=== PATIENT | male | born 1975 | race Caucasian/White ===

== ENCOUNTER → 2023-06-24 | Outpatient (CLI) | payer OTHER ==
[2023-06-25 08:06] LABS: MUMPS VIRUS IGG ANTIBODY 99.2 AU/mL (Immune >10.9); RUBEOLA (MEASLES) IGG >300.0 AU/mL (Immune >16.4); VARICELLA ZOSTER IGG AB TITER 1683 index (Immune >165)
[2023-06-28 00:06] LABS: QUANTIFERON+, Nil Value 0.04 IU/mL; QUANTIFERON+,Mitogen Value >10.00 IU/mL; QUANTIFERON+,TB1 Antigen Value 3.96 IU/mL; QUANTIFERON+,TB2 Antigen Value 4.44 IU/mL; QUANTIFERON, TB GOLD PLUS Positive (Negative)
== END | disposition home or self-care (01) ==
LOC: LABMN 16:06
PROVIDERS: ATTEND Family Medicine
DX: Z11.3 Encounter for screening for infections with a predominantly sexual mode of transmission (principal); Z20.1 Contact with and (suspected) exposure to tuberculosis; Z20.89 Contact with and (suspected) exposure to other communicable diseases; Z20.822 Contact with and (suspected) exposure to COVID-19
CPT/HCPCS: 86480; 86592; 86706; 86735; 86762; 86765; 86787; 87340; 87591